=== PATIENT | male | born 1955 | race Caucasian/White ===

== ENCOUNTER 2020-11-08 04:07 | Outpatient (CLI) | payer MEDICARE, SELFPAY ==
[2020-11-11 11:44] LABS: PSA, Ultrasensitive <0.01 ng/mL (<= 4.5)
== END 2020-11-08 04:27 ==
PROVIDERS: PCP Family Medicine; Visit Provider Radiology Radiation Oncology
DX: C61 Malignant neoplasm of prostate (principal)
CPT/HCPCS: 36415; 84153

== ENCOUNTER 2020-11-15 02:41 | Outpatient (CLI) | payer MEDICARE, SELFPAY ==
[2020-11-18 10:59] LABS: PSA, Ultrasensitive <0.01 ng/mL (<= 4.5)
== END 2020-11-15 03:01 ==
PROVIDERS: PCP Family Medicine; Visit Provider Radiology Radiation Oncology
DX: C61 Malignant neoplasm of prostate (principal)
CPT/HCPCS: 36415; 84153

== ENCOUNTER 2023-05-13 13:27 | Outpatient (RCR) | payer MEDICARE, SELFPAY ==
--- NOTE | 2023-05-13 13:15 | HOLTER_ITS ---
APPROVED REPORT Conclusion This is a Holter monitor ordered for dizziness. Patient was monitored for 1 day and 19 hours Predominant rhythm is sinus with an average heart rate of 51. Minimum was 39, maximum 70 There were rare ventricular ectopic beats. There was one 6 beat run of nonsustained ventricular tach ycardia There were rare atrial premature beats There was one self-limited atrial run, 4 beats in duration There was no atrial fibrillation, no high-grade AV block, no pauses greater than 3 seconds No patient symptoms were reported
== END 2023-05-24 23:59 | disposition home or self-care (01) ==
LOC: CARDOPNVT 13:27
PROVIDERS: PCP Family Medicine; Visit Provider Nurse Practitioner Family
DX: R42 Dizziness and giddiness (principal); R00.0 Tachycardia, unspecified
CPT/HCPCS: 93227; 93225; 93226

== ENCOUNTER 2023-07-27 14:26 | Outpatient (REF) | payer OTHER, SELFPAY ==
[2023-07-27 19:45] LABS: HCT 35.7 % (40.0-50.0); HGB 11.1 g/dL (13.5-17.5); MCH 27.1 pg (27.0-33.0); MCHC 31.1 % (32.0-36.0); MCV 87 fL (80-95); MPV 11.3 fL (8.0-11.0); Platelet Count 205 10^3/uL (130-400); RBC 4.09 10^6/uL (4.36-5.78); RDW 16.2 % (11.8-14.1); RDW-SD 51.2 fL; WBC 6.09 10^3/uL (4.4-10.8)
[2023-07-27 19:59] LABS: ALT 15 U/L (16-63); AST 20 U/L (15-37); Albumin 3.8 g/dL (3.4-5.0); Alkaline Phosphatase 69 U/L (46-116); Anion Gap 9.8 mmol/L (3-11); BUN 19 mg/dL (7-18); Bilirubin, Total 0.2 mg/dL (0.2-1.0); CO2 25.2 mmol/L (21.0-32.0); Calcium 9.1 mg/dL (8.5-10.1); Chloride 105 mmol/L (98-107); Estimated GFR 83.52 (mL/min/1.73m2); Glucose 101 mg/dL (74-106); Potassium 4.3 mmol/L (3.5-5.1); Sodium 140 mmol/L (136-145); Total Protein 7.4 g/dL (6.4-8.2)
== END 2023-07-27 14:27 | disposition home or self-care (01) ==
LOC: LBN 14:26
PROVIDERS: PCP Nurse Practitioner Family; Visit Provider Surgery
DX: I71.40 Abdominal aortic aneurysm, without rupture, unspecified (principal)
CPT/HCPCS: 80053; 85027

== ENCOUNTER 2023-08-04 13:30 | Outpatient (REF) | payer OTHER, SELFPAY ==
[2023-08-06 18:31] LABS: PSA, Ultrasensitive <0.01 ng/mL (<= 4.5)
[2023-08-13 09:20] LABS: Testosterone, Free 6.93 ng/dL (3.47-13.0); Testosterone, Total 337 ng/dL (240-950)
== END 2023-08-04 13:31 | disposition home or self-care (01) ==
LOC: LBN 13:30
PROVIDERS: PCP Nurse Practitioner Family; Visit Provider Radiology Radiation Oncology
DX: C61 Malignant neoplasm of prostate (principal)
CPT/HCPCS: 84153; 84402; 84403

== ENCOUNTER 2024-02-03 18:23 | Outpatient (REF) | payer OTHER, SELFPAY ==
[2024-02-04 18:25] LABS: PSA, Diagnostic <0.1 ng/mL (<=4.5)
== END 2024-02-03 18:24 | disposition home or self-care (01) ==
LOC: NCHCN 18:23
PROVIDERS: PCP Nurse Practitioner Family; Visit Provider Nurse Practitioner Family
DX: C61 Malignant neoplasm of prostate (principal)
CPT/HCPCS: 84153

== ENCOUNTER → 2024-05-09 01:19 | Outpatient (CLI) | payer OTHER, SELFPAY ==
--- NOTE | 2024-05-09 11:50 | DI.CTLCSR_ITS ---
Exam(s) CT CHEST LUNG CANCER SCREEN EXAM: CT CHEST LUNG CANCER SCREEN CLINICAL HISTORY: NICOTINE DEPENDENCE, F17.210 TECHNIQUE: Imaging Protocol: Axial computed tomography images with coronal and sagittal reformatted images were created and reviewed. Low dose screening protocol. COMPARISON: No exams were available for comparison FINDINGS: Tracheobronchial tree: No bronchiectasis or mucus plugging. Mediastinum and [place]: No dominant adenopathy or fluid collection. Pulmonary parenchyma: No consolidation or dominant measurable mass. Mild emphysematous changes. Lung Nodules: Scattered calcified granulomas. Pleura: No effusion. No pneumothorax. Heart: The heart is moderately dilated. Severe coronary artery calcifications are seen. Aorta: Thoracic aorta non-dilated. Moderate atherosclerotic changes in the chest. Stent noted in p roximal abdominal aorta. Upper abdomen: Unremarkable. Bones: Degenerative changes in the thoracic spine with prominent endplate osteophytes. Soft Tissues: Unremarkable. IMPRESSION: No suspicious pulmonary nodules. Lung RADS Cat 1 - Negative: No nodules and definitely benign nodules Lung-RADS 1.0 CATEGORIES: Category 0 - Prior chest CT exam(s) being located for comparison. Category 1 - Annual screening in 12 months. No nodules or definitely benign nodules. Category 2 - Annual screening in 12 months. Benign appearance. Nodules with low likelihood of becomin g active cancer. Category 3 - 6-month follow-up. Probably benign. Short-term follow-up suggested. Nodules with low lik elihood of becoming active cancer. Category 4A - 3-month follow-up and CT/PET if >8 mm in size. Suspicious finding. Findings which requi re additional testing. Category 4B - Findings which require additional testing and tissue sampling. Category 4X - Category 3 or 4 nodules with additional features or imaging findings that increases the suspicion of malignancy. Modifier S- Potentially clinically significant findings (non lung cancer) RADIATION DOSE DELIVERED: Total DLP DATA REPOSITORY: All CT scans at this facility are submitted to the National Radiology Data Registry (NRDR) Dose Index Registry (DIR) with the [employer] ([employer]). RADIATION OPTIMIZATION: All CT scans at this facility use at least one of these dose optimization te chniques: automated exposure control; mA and/or kV adjustment per patient size (includes targeted exa ms where dose is matched to clinical indication); or iterative reconstruction.
== END ==
PROVIDERS: PCP Nurse Practitioner Family; Visit Provider Nurse Practitioner Family
DX: F17.210 Nicotine dependence, cigarettes, uncomplicated (principal)
CPT/HCPCS: 71271

== ENCOUNTER 2024-07-31 15:03 | Outpatient (REF) | payer OTHER, SELFPAY ==
[2024-07-31 16:29] LABS: Abs Immature Grans 0.01 10^3/uL (0.0-0.06); Absolute Basophil Count 0.05 10^3/uL (0.0-0.2); Absolute Eosinophil Count 0.58 10^3/uL (0.0-0.7); Absolute Monocyte Count 0.62 10^3/uL (0.1-0.8); Basophils % 0.8 %; Eosinophils % 8.7 %; HCT 41.8 % (40.0-50.0); HGB 14.6 g/dL (13.5-17.5); Immature Grans % 0.2 %; MCHC 34.9 % (32.0-36.0); MCV 94 fL (80-95); MPV 11.5 fL (8.0-11.0); Monocytes % 9.3 %; Platelet Count 201 10^3/uL (130-400); RBC 4.43 10^6/uL (4.36-5.78); RDW 12.5 % (11.8-14.1); RDW-SD 43.6 fL; WBC 6.66 10^3/uL (4.4-10.8)
[2024-07-31 17:09] LABS: VALPROIC ACID 35.3 ug/mL
[2024-07-31 17:12] LABS: ALT 18 U/L (16-63); AST 19 U/L (15-37); Albumin 3.7 g/dL (3.4-5.0); Alkaline Phosphatase 76 U/L (46-116); Anion Gap 12.1 mmol/L (3-11); BUN 10 mg/dL (7-18); Bilirubin, Total 0.35 mg/dL (0.2-1.0); CO2 24.9 mmol/L (21.0-32.0); Calcium 9.1 mg/dL (8.5-10.1); Calculated LDL 105 mg/dL (<100); Chloride 106 mmol/L (98-107); Cholesterol 184 mg/dL (<200); Estimated GFR 83.01 (mL/min/1.73m2); Glucose 124 mg/dL (74-106); HDL Cholesterol 50 mg/dL (40-60); Potassium 4.4 mmol/L (3.5-5.1); Sodium 143 mmol/L (136-145); Total Protein 7.4 g/dL (6.4-8.2); Triglyceride 145 mg/dL (<150)
[2024-07-31 17:50] LABS: Hemoglobin A1C 6.2 % (<5.7)
== END 2024-07-31 15:04 | disposition home or self-care (01) ==
LOC: NCHCN 15:03
PROVIDERS: PCP Nurse Practitioner Family; Visit Provider Nurse Practitioner Family
DX: I25.10 Atherosclerotic heart disease of native coronary artery without angina pectoris (principal); R31.0 Gross hematuria; R82.89 Other abnormal findings on cytological and histological examination of urine
CPT/HCPCS: 80053; 80061; 80164; 83036; 85025; 87086

== ENCOUNTER 2024-11-15 13:15 | Outpatient (REF) | payer MEDICARE, SELFPAY ==
[2024-11-15 23:21] LABS: PSA, Screening <0.1 ng/mL (<=4.5)
== END 2024-11-15 13:16 | disposition home or self-care (01) ==
LOC: NCHCN 13:15
PROVIDERS: Visit Provider Nurse Practitioner Family
DX: Z85.46 Personal history of malignant neoplasm of prostate (principal); R73.03 Prediabetes
CPT/HCPCS: 84153; 83036

== ENCOUNTER → 2025-01-03 10:24 | Outpatient (BNVA) | payer MEDICARE, SELFPAY | PROVIDERS: PCP Nurse Practitioner Family; Referring Provider Nurse Practitioner Family; Visit Provider Physical Therapy Assistant | DX: I73.9 Peripheral vascular disease, unspecified (principal) | CPT/HCPCS: 93922 ==

== ENCOUNTER → 2025-02-21 14:50 | Outpatient (BNVA) | payer MEDICARE, SELFPAY | PROVIDERS: PCP Nurse Practitioner Family; Referring Provider Nurse Practitioner Family; Visit Provider Podiatrist | DX: L84 Corns and callosities (principal); B35.1 Tinea unguium; Q82.8 Other specified congenital malformations of skin; L60.8 Other nail disorders; L60.3 Nail dystrophy; M79.671 Pain in right foot; M79.672 Pain in left foot; L60.2 Onychogryphosis | CPT/HCPCS: 17110; 99214 ==

== ENCOUNTER 2025-03-26 16:45 | Outpatient (REF) | payer MEDICARE, SELFPAY ==
[2025-03-26 18:56] LABS: Abs Immature Grans 0.03 10^3/uL (0.0-0.06); Absolute Basophil Count 0.05 10^3/uL (0.0-0.2); Absolute Eosinophil Count 0.43 10^3/uL (0.0-0.7); Absolute Lymphocyte Count 1.86 10^3/uL (1.2-3.4); Absolute Monocyte Count 0.69 10^3/uL (0.1-0.8); Absolute Neutrophil Count 3.17 10^3/uL (1.2-6.7); Basophils % 0.8 %; Eosinophils % 6.9 %; HCT 39.2 % (40.0-50.0); HGB 13.3 g/dL (13.5-17.5); Immature Grans % 0.5 %; Lymphocytes % 29.9 %; MCH 32.4 pg (27.0-33.0); MCHC 33.9 % (32.0-36.0); MCV 95 fL (80-95); MPV 11.2 fL (8.0-11.0); Monocytes % 11.1 %; Neutrophils % 50.8 %; Platelet Count 207 10^3/uL (130-400); RBC 4.11 10^6/uL (4.36-5.78); RDW 12.6 % (11.8-14.1); RDW-SD 43.9 fL; WBC 6.23 10^3/uL (4.4-10.8)
[2025-03-26 19:15] LABS: Hemoglobin A1C 5.8 % (<5.7)
[2025-03-26 19:34] LABS: Vitamin B12 1217 pg/mL (193-986)
== END 2025-03-26 16:46 | disposition home or self-care (01) ==
LOC: NCHCN 16:45
PROVIDERS: PCP Nurse Practitioner Family; Visit Provider Nurse Practitioner Family
DX: R73.03 Prediabetes (principal); Z87.448 Personal history of other diseases of urinary system; E53.8 Deficiency of other specified B group vitamins
CPT/HCPCS: 82607; 83036; 85025

== ENCOUNTER 2025-03-30 12:45 | Outpatient (REF) | payer MEDICARE, SELFPAY ==
[2025-03-30 22:37] LABS: PSA, Diagnostic <0.1 ng/mL (<=4.5)
== END 2025-03-30 12:46 | disposition home or self-care (01) ==
LOC: NCHCN 12:45
PROVIDERS: PCP Nurse Practitioner Family; Visit Provider Nurse Practitioner Family
DX: C61 Malignant neoplasm of prostate (principal)
CPT/HCPCS: 84153

== ENCOUNTER 2025-05-11 00:22 | Outpatient (CLI) | payer MEDICARE, SELFPAY ==
--- NOTE | 2025-05-11 | DI.CTLCSR_ITS ---
Exam(s) CT CHEST LUNG CANCER SCREEN EXAM: CT CHEST LUNG CANCER SCREEN CLINICAL HISTORY: Former smoker, hx of tobacco use Z87.891. TECHNIQUE: Imaging Protocol: Low Dose Technique CONTRAST MATERIAL: None COMPARISON: CT CT CHEST LUNG CANCER SCREEN from 05/09/2024 FINDINGS: CHEST: LUNGS: There are again noted a few small tiny benign calcified granulomas. There are no new ominous pulmonary nodules. Mild increased markings in the inferior lingular segment of the left lung remain unchanged. There are no new infiltrates. No pleural effusions. MEDIASTINUM: There is no obvious hilar nor mediastinal adenopathy. CARDIAC: Heart size is normal. There is no pericardial effusion.Diameter of the ascending thoracic aorta is 3.8 cm which is slightly prominent. Diameter of the aortic arch and descending thoracic aorta are also slightly prominent. The lower most images reveal what is possibly part of an abdominal aortic EVAR. OTHER: OSSEOUS: No significant osseous lesions.. IMPRESSION: 1. No suspicious pulmonary nodules. 2. Enlarged ascending thoracic aorta with diameter 3.8 cm and mildly enlarged aortic arch and descending thoracic aorta. 3. Lung RADS Cat 1S - Negative: No nodules and definitely benign nodules. Other: Clinically Significant or Potentially Clinically Significant Findings (non lung cancer) Lung-RADS 1.0 CATEGORIES: Category 0 - Prior chest CT exam(s) being located for comparison. Category 1 - Annual screening in 12 months. No nodules or definitely benign nodules. Category 2 - Annual screening in 12 months. Benign appearance. Nodules with low likelihood of becoming active cancer. Category 3 - 6-month follow-up. Probably benign. Short-term follow-up suggested. Nodules with low likelihood of becoming active cancer. Category 4A - 3-month follow-up and CT/PET if >8 mm in size. Suspicious finding. Findings which require additional testing. Category 4B - Findings which require additional testing and tissue sampling. Category 4X - Category 3 or 4 nodules with additional features or imaging findings that increases the suspicion of malignancy. Modifier S- Potentially clinically significant findings (non lung cancer) RADIATION DOSE DELIVERED: 30.75mGy.cm Total DLP DATA REPOSITORY: All CT scans at this facility are submitted to the National Radiology Data Registry (NRDR) Dose Index Registry (DIR) with the [employer] ([employer]). RADIATION OPTIMIZATION: All CT scans at this facility use at least one of these dose optimization techniques: automated exposure control; mA and/or kV adjustment per patient size (includes targeted exams where dose is matched to clinical indication); or iterative reconstruction.
== END 2025-05-11 00:42 ==
PROVIDERS: PCP Nurse Practitioner Family; Visit Provider Nurse Practitioner Family
DX: Z12.2 Encounter for screening for malignant neoplasm of respiratory organs (principal); Z87.891 Personal history of nicotine dependence; I77.810 Thoracic aortic ectasia
CPT/HCPCS: 71271

== ENCOUNTER 2025-05-17 10:49 | Outpatient (CLI) | payer MEDICARE, SELFPAY | END 2025-05-17 10:50 | disposition home or self-care (01) | LOC: LBO 10:49 | PROVIDERS: PCP Nurse Practitioner Family; Visit Provider Physician Assistant | DX: C61 Malignant neoplasm of prostate (principal) | CPT/HCPCS: 36415; 84153 ==

== ENCOUNTER → 2025-06-20 14:32 | Outpatient (BNVA) | payer MEDICARE, SELFPAY | PROVIDERS: PCP Nurse Practitioner Family; Referring Provider Nurse Practitioner Family; Visit Provider Podiatrist | DX: L60.3 Nail dystrophy (principal); B35.1 Tinea unguium; L84 Corns and callosities; M79.671 Pain in right foot; M79.672 Pain in left foot; Q82.8 Other specified congenital malformations of skin; L60.8 Other nail disorders | CPT/HCPCS: 17110 ==

== ENCOUNTER → 2025-07-19 11:32 | Outpatient (BNVA) | payer MEDICARE, SELFPAY | PROVIDERS: PCP Nurse Practitioner Family; Referring Provider Nurse Practitioner Family; Visit Provider Podiatrist | DX: L60.0 Ingrowing nail (principal); M79.671 Pain in right foot; M79.672 Pain in left foot; L84 Corns and callosities; L60.3 Nail dystrophy; B35.1 Tinea unguium; Q82.8 Other specified congenital malformations of skin; L60.8 Other nail disorders | CPT/HCPCS: 11750; 17110 ==

== ENCOUNTER 2025-09-28 09:17 | Outpatient (REF) | payer MEDICARE, SELFPAY ==
[2025-09-28 17:58] LABS: Abs Immature Grans 0.01 10^3/uL (0.0-0.06); HCT 36.7 % (40.0-50.0); HGB 12.4 g/dL (13.5-17.5); Immature Grans % 0.2 %; MCH 31.3 pg (27.0-33.0); MCHC 33.8 % (32.0-36.0); MCV 93 fL (80-95); MPV 11.7 fL (8.0-11.0); Platelet Count 196 10^3/uL (130-400); RBC 3.96 10^6/uL (4.36-5.78); RDW 13.2 % (11.8-14.1); RDW-SD 44.9 fL; WBC 5.78 10^3/uL (4.4-10.8)
== END 2025-09-28 09:18 | disposition home or self-care (01) ==
LOC: NCHCN 09:17
PROVIDERS: PCP Nurse Practitioner Family; Visit Provider Nurse Practitioner Family
DX: R31.9 Hematuria, unspecified (principal)
CPT/HCPCS: 84153; 85025